=== PATIENT | female | born 1975 | race Caucasian/White ===

== ENCOUNTER 2018-06-25 01:44 | Emergency (ER) | payer SELFPAY ==
[~2018-06-25 01:44] MED LIST: DOC100 PO; IBU800 PO; LOR5 PO
[2018-06-25] MEDS ORDERED: NS(*) 0.9% 1000 ML BAG 1,000 ML IV ONE (02:05)
--- NOTE | 2018-06-25 02:42 | ER Report ---
History and Physical Time Seen By MD: 01:52 Hx. of Stated Complaint: started not feeling well on . coughing up yellow, sob, lungs hurt HPI/ROS CHIEF COMPLAINT: cough, sore throat HISTORY OF PRESENT ILLNESS: This is a 42 year old female. She has been sick since . Coughing up yellow sputum. Short of breath. Lungs hurt from coughing so much. Having severe sore throat pain. Headaches. Intermittent fevers/chills. Body aches as well. No trouble with bowel or bladder function. Poor appetite Allergies: Coded Allergies: No Known Drug Allergies (Verified , 06/25/18) Home Meds Discontinued Reported Medications Acetaminophen/Hydrocodone (Lortab 5/500) 5 Mg/500 Mg Tab, 1 TAB PO Q4-6H, #30 0 Refills as needed for pain 12/29/10 Docusate Sodium (Colace 100 Mg) 100 Mg Cap, 100 MG PO BID, #30 0 Refills 12/29/10 Ibuprofen (Motrin) 800 Mg Tab, 800 MG PO Q8H, #30 0 Refills take three times a day with food 12/29/10 Reviewed Nurses Notes: Yes Constitutional Vital Sign - Last 24 Hours 06/25/18 06/25/18 06/25/18 06/25/18 01:47 01:50 01:59 02:00 Temp 98.8 Pulse 57 76 Resp 16 12 B/P (MAP) 135/94 135/94 (108) 110/86 (94) Pulse Ox 97 98 O2 Delivery Room Air 06/25/18 06/25/18 06/25/18 06/25/18 02:14 02:15 02:29 02:30 Pulse 60 58 Resp 21 11 B/P (MAP) 116/80 (92) ???/??? (9285) Pulse Ox 94 96 06/25/18 06/25/18 06/25/18 06/25/18 02:34 02:44 02:45 02:59 Pulse 54 57 Resp 10 37 B/P (MAP) 116/82 (93) 112/77 (89) Pulse Ox 96 95 06/25/18 06/25/18 06/25/18 06/25/18 03:00 03:14 03:27 03:29 Pulse 53 55 Resp 13 27 B/P (MAP) 112/80 (91) 112/76 (88) Pulse Ox 96 88 06/25/18 06/25/18 06/25/18 06/25/18 03:30 03:35 03:45 03:50 Pulse 67 53 Resp 13 B/P (MAP) 110/72 (85) 110/71 (84) 06/25/18 06/25/18 06/25/18 06/25/18 04:00 04:05 04:15 04:20 Pulse 57 62 Resp 16 B/P (MAP) 108/69 (82) 110/76 (87) Pulse Ox 96 06/25/18 06/25/18 06/25/18 06/25/18 04:30 04:35 04:45 04:50 Pulse 69 59 Resp 11 7 B/P (MAP) 122/78 (93) 115/83 (94) Pulse Ox 96 99 06/25/18 06/25/18 05:00 05:05 Pulse 58 Resp 14 B/P (MAP) 108/79 (89) Pulse Ox 97 Intake and Output 06/24/18 06/24/18 06/25/18 15:00 23:00 07:00 Intake Total 1000 ml Balance 1000 ml Physical Exam General Appearance: The patient is alert. No acute distress. Ill appearing, but non-toxic in appearance. Eyes: Pupils are equal, round. No pallor, injection or icterus. ENT: Mucous membranes are moist. Normal oral mucosa. Posterior oropharynx is erythematous. Nasal mucosa with some mucous and erythema. Normal tympanic membranes and canals. Neck: Supple and non tender. No lymphadenopathy. Respiratory: Lungs with some rhonchi, but no rales or wheezing. Cardiovascular: Regular rate and rhythm. No murmurs, gallops or rubs. Normal capillary refill. Gastrointestinal: Abdomen soft, nontender. Nondistended. Neurological: Alert and oriented x3. Skin: Warm and dry. DIFFERENTIAL DIAGNOSIS: After history and physical exam, differential diagnosis was considered for ED shortness breath differential Medical Decision Making Data Points Result Diagram: 06/25/18 0233 06/25/18 0233 Laboratory Hematology Test 06/25/18 01:53 06/25/18 02:33 Influenza Virus Type A (PCR) Negative (NEGATIVE) Influenza Virus Type B (PCR) Negative (NEGATIVE) Group A Streptococcus (PCR) Negative (NEGATIVE) Red Blood Count 4.77 M/uL (4.17-5.56) Mean Corpuscular Volume 95.6 fL (80.0-96.0) Mean Corpuscular Hemoglobin 32.5 pg (26.0-33.0) Mean Corpuscular Hemoglobin Concent 34.0 g/dL (32.0-36.0) Red Cell Distribution Width 13.2 % (11.5-14.5) Mean Platelet Volume 9.3 fL (7.2-11.1) Neutrophils (%) (Auto) 56.3 % (39.4-72.5) Lymphocytes (%) (Auto) 30.5 % (17.6-49.6) Monocytes (%) (Auto) 8.0 % (4.1-12.4) Eosinophils (%) (Auto) 4.6 % (0.4-6.7) Basophils (%) (Auto) 0.6 % (0.3-1.4) Nucleated RBC Relative Count (auto) 0.1 /100WBC Neutrophils # (Auto) 2.0 K/uL (2.0-7.4) Lymphocytes # (Auto) 1.1 K/uL (1.3-3.6) Monocytes # (Auto) 0.3 K/uL (0.3-1.0) Eosinophils # (Auto) 0.2 K/uL (0.0-0.5) Basophils # (Auto) 0.0 K/uL (0.0-0.1) Nucleated RBC Absolute Count (auto) 0.00 K/uL Sodium Level 137 mmol/L (137-145) Potassium Level 4.0 mmol/L (3.5-5.0) Chloride Level 105 mmol/L (98-107) Carbon Dioxide Level 24 mmol/L (22-31) Blood Urea Nitrogen 10 mg/dl (7-18) Creatinine 0.90 mg/dl (0.52-1.04) Glomerular Filtration Rate Calc > 60.0 Random Glucose 91 mg/dl (75-110) Calcium Level 8.7 mg/dl (8.4-10.2) Total Bilirubin 0.4 mg/dl (0.2-1.3) Aspartate Amino Transf (AST/SGOT) 32 U/L (0-35) Alanine Aminotransferase (ALT/SGPT) 23 U/L (0-56) Alkaline Phosphatase 45 U/L (0-126) Total Protein 7.1 g/dl (6.3-8.2) Albumin 3.9 g/dl (3.5-5.0) Chemistry Test 06/25/18 01:53 06/25/18 02:33 Influenza Virus Type A (PCR) Negative (NEGATIVE) Influenza Virus Type B (PCR) Negative (NEGATIVE) Group A Streptococcus (PCR) Negative (NEGATIVE) White Blood Count 3.6 k/uL (4.5-11.0) Red Blood Count 4.77 M/uL (4.17-5.56) Hemoglobin 15.5 g/dL (12.0-16.0) Hematocrit 45.6 % (34.0-47.0) Mean Corpuscular Volume 95.6 fL (80.0-96.0) Mean Corpuscular Hemoglobin 32.5 pg (26.0-33.0) Mean Corpuscular Hemoglobin Concent 34.0 g/dL (32.0-36.0) Red Cell Distribution Width 13.2 % (11.5-14.5) Platelet Count 186 K/uL (150-450) Mean Platelet Volume 9.3 fL (7.2-11.1) Neutrophils (%) (Auto) 56.3 % (39.4-72.5) Lymphocytes (%) (Auto) 30.5 % (17.6-49.6) Monocytes (%) (Auto) 8.0 % (4.1-12.4) Eosinophils (%) (Auto) 4.6 % (0.4-6.7) Basophils (%) (Auto) 0.6 % (0.3-1.4) Nucleated RBC Relative Count (auto) 0.1 /100WBC Neutrophils # (Auto) 2.0 K/uL (2.0-7.4) Lymphocytes # (Auto) 1.1 K/uL (1.3-3.6) Monocytes # (Auto) 0.3 K/uL (0.3-1.0) Eosinophils # (Auto) 0.2 K/uL (0.0-0.5) Basophils # (Auto) 0.0 K/uL (0.0-0.1) Nucleated RBC Absolute Count (auto) 0.00 K/uL Glomerular Filtration Rate Calc > 60.0 Calcium Level 8.7 mg/dl (8.4-10.2) Total Bilirubin 0.4 mg/dl (0.2-1.3) Aspartate Amino Transf (AST/SGOT) 32 U/L (0-35) Alanine Aminotransferase (ALT/SGPT) 23 U/L (0-56) Alkaline Phosphatase 45 U/L (0-126) Total Protein 7.1 g/dl (6.3-8.2) Albumin 3.9 g/dl (3.5-5.0) EKG/Imaging EKG Interpretation 12 lead EKG: Rhythm: normal sinus rhythm, rate 70 [place]: normal QRS: normal ST segments: Nonspecific Imaging CHEST: Indication: Cough and dyspnea. Technique: Frontal and lateral views were obtained. Comparison: 05/29/2007 Skeletal and soft tissue structures: Intact and unremarkable. Heart and mediastinum: Within normal limits. Lung morrow: Well expanded and clear. No focal or diffuse opacities. Pleural spaces: Unremarkable. Impression: No acute process or significant change. Report Dictated By: Lei Hills MD at 06/25/2018 4:35 AM ED Course/Re-evaluation Clinical Indication for ER IV: Hydration, IV Access ED Course Imaging negative for acute cardiopulmonary process. EKG negative. The rest the work up shows normal labs. Influenza negative. Strep negative. Reviewed all this with the patient. This appears to be viral upper respiratory infection of an unknown virus. Recommended conservative management. She will use ibuprofen for pain. Did offer guaifenesin with codeine or a pain pill such as codeine/Tylenol to help with pain and cough but she would prefer just to use [id number] medications at this point. Decision to Disposition Date: Jun 25, 2018 Decision to Disposition Time: 05:12 Depart Departure Latest Vital Signs Vital Signs Date Time Temp Pulse Resp B/P (MAP) Pulse Ox O2 Delivery O2 Flow Rate FiO2 06/25/18 05:05 58 14 97 06/25/18 05:00 108/79 (89) 06/25/18 01:47 98.8 Room Air Impression: Primary Impression: Viral upper respiratory infection Condition: Improved Disposition: HOME OR SELF-CARE New Scripts No Active Prescriptions or Reported Meds Patient Instructions: Upper Respiratory Infection (ED) Additional Instructions: Rest and increase fluid intake. Take Ibuprofen 200mg over the counter tablets, 3 tablets every 6 hours as needed for pain. Over the counter medications for cold and cough symptoms as needed. AKILA KRUEGER MD Jun 25, 2018 02:42
[2018-06-25 02:58] LABS: PLATELET COUNT, AUTOMATED 186 K/uL (150-450)
--- NOTE | 2018-06-25 04:41 | RADIOLOGY IMAGING REPORT ---
FACILITY: [facility] PATIENT NAME: Saskia Marquis : 1975 MR: [id number] V: [id number] EXAM DATE: ORDERING PHYSICIAN: AKILA KRUEGER TECHNOLOGIST: Location: [facility] Patient: Saskia Marquis : 1975 Visit/Account:[id number] Date of Sevice: 06/25/2018 CHEST: Indication: Cough and dyspnea. Technique: Frontal and lateral views were obtained. Comparison: 05/29/2007 Skeletal and soft tissue structures: Intact and unremarkable. Heart and mediastinum: Within normal limits. Lung morrow: Well expanded and clear. No focal or diffuse opacities. Pleural spaces: Unremarkable. Impression: No acute process or significant change. Report Dictated By: Lei Hills MD at 06/25/2018 4:35 AM Report E-Signed By: Lei Hills MD at 06/25/2018 4:36 AM [id number]
[2018-06-25 05:00] VITALS: BP 108/79
== END 2018-06-25 05:20 | disposition home or self-care (01) ==
LOC: ER 02:09
DX: J06.9 Acute upper respiratory infection, unspecified (principal)
CPT/HCPCS: 71046; 85025; 87502; 87653; 96360; 99283; J7030; 82040; 82247; 82310; 82374; 82435; 82565; 82947; 84075; 84132; 84155; 84295; 84450; 84460; 84520